=== PATIENT | male | born 1990 | race Caucasian/White ===

== ENCOUNTER 2017-03-18 12:11 | Emergency (ER) | payer SELFPAY ==
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
[2017-03-18] MEDS ORDERED: cefTRIAXone VIAL(*) 1,000 MG VIAL IM ONE (14:01)
[2017-03-18] MEDS ORDERED: methylPREDNISolone ACETATE 80* 80 MG/ML 1 ML VIAL IM ONE (14:02)
[2017-03-18] MEDS ORDERED: LoraTADine TAB(NF) 10 MG TAB (AUTOSUB to CETIRIZINE) PO ONE (14:03)
[2017-03-18] MEDS ORDERED: Lidocaine 1% MPF* 2 ML VIAL ONE (14:48)
[2017-03-18] MEDS ORDERED: Lidocaine 1% MPF* 2 ML VIAL INJ ONE (14:49)
[2017-03-18 14:55] VITALS: BP 120/70
== END 2017-03-18 15:05 | disposition home or self-care (01) ==
LOC: UCEAST 12:11
DX: M79.89 Other specified soft tissue disorders (principal)
CPT/HCPCS: 96372; 99212; A9270-GY; G0463; J0696; J1040

== ENCOUNTER 2018-01-09 20:26 | Emergency (ER) | payer OTHER ==
[2018-01-09 20:40] VITALS: BP 131/84
--- NOTE | 2018-01-09 21:09 | UC ---
UC General HPI - HPI Summary HPI Summary: c/o loose stools for the past 5 days. Denies fever, chills, mucus or blood in stools, melena or vomiting. Denies weight loss, but has some nausea when ingesting. Denies any dietary changes, not drinking much caffeine. - History of Current Complaint Chief Complaint: UCGeneralIllness Stated Complaint: DIARRHEA Time Seen by Provider: 01/09/18 21:01 Hx Obtained From: Patient Onset/Duration: Sudden Onset, Lasting Days Onset Severity: Mild Current Severity: Mild Pain Intensity: 2 Associated Signs & Symptoms: Positive: Diarrhea - Allergy/Home Medications Allergies/Adverse Reactions: Allergies Allergy/AdvReac Type Severity Reaction Status Date / Time No Known Allergies Allergy Verified 01/09/18 20:34 PMH/Surg Hx/FS Hx/Imm Hx Previously Healthy: Yes Psychological History: Depression - ADHD - Surgical History Surgical History: Yes Surgery Procedure, Year, and Place: Carpal tunnel release 6 months ago. - Family History Known Family History: Positive: None - Social History Alcohol Use: Occasionally Substance Use Type: None Smoking Status (MU): Former Smoker Type: Cigarettes Amount Used/How Often: quit in 2014 Length of Time of Smoking/Using Tobacco: 8 years Have You Smoked in the Last Year: Yes Review of Systems Gastrointestinal: Diarrhea, Nausea All Other Systems Reviewed And Are Negative: Yes Physical Exam Triage Information Reviewed: Yes Appearance: Well-Appearing, No Pain Distress, Obese Vital Signs: Initial Vital Signs Temp 98.2 F 01/09/18 20:35 Pulse 108 01/09/18 20:35 Resp 20 01/09/18 20:35 BP 131/84 01/09/18 20:35 Pulse Ox 98 01/09/18 20:35 Vital Signs Reviewed: Yes Eyes: Positive: Conjunctiva Clear ENT: Positive: Hearing grossly normal Neck: Positive: Supple, Nontender, No Lymphadenopathy Respiratory: Positive: Chest non-tender, Lungs clear, Normal breath sounds, No respiratory distress Cardiovascular: Positive: RRR, No Murmur, Pulses Normal, Brisk Capillary Refill Abdomen Description: Positive: Nontender, No Organomegaly, Soft Bowel Sounds: Positive: Present Course/Dx - Course Course Of Treatment: viral gastroenteritis, continue oral hydration, avoid alcohol, caffeine, or dairy except yogurt, f/u PCP referral. - Differential Dx - Multi-Symptom Provider Diagnoses: viral gastroenteritis Discharge - Sign-Out/Discharge Documenting (check all that apply): Discharge/Admit/Transfer - Discharge Plan Condition: Good Disposition: HOME Patient Education Materials: Gastroenteritis (ED) Forms: *Work Release Referrals: No Primary Care Phys,NOPCP [Primary Care Provider] - [facility] [place] [facility] [Outside] - Billing Disposition and Condition Condition: GOOD Disposition: Home
== END 2018-01-09 21:11 | disposition home or self-care (01) ==
LOC: UCEAST 20:26
DX: A08.4 Viral intestinal infection, unspecified (principal); F90.9 Attention-deficit hyperactivity disorder, unspecified type; F32.9 Major depressive disorder, single episode, unspecified; Z87.891 Personal history of nicotine dependence
CPT/HCPCS: 99211; G0463

== ENCOUNTER 2018-09-07 09:48 | Emergency (ER) | payer BC, OTHER ==
[2018-09-07] MEDS ORDERED: Nicotine Inhaler* 10 MG AMP INH PRN (10:21)
[2018-09-07] MEDS ORDERED: Mouth Piece, Nicotine* 1 EACH CARTRIDGE INH ONE (11:00)
--- NOTE | 2018-09-07 11:15 | ED ---
Psychiatric Complaint - HPI Summary HPI Summary: Pt is a 28 y/o male brought in by police on a 941 who presents to the ED c/o SI. As per mother, he has been under a lot of stress recently. He and his girlfriend broke up a few weeks ago, and she took his son away from him. Pts father has been mediating the situation. He has been missing work lately because of these stressors, and was subsequently fired yesterday. Pt recently found out that both his ex-girlfriend and his father have been lying to him, as his ex-girlfriend has been staying at the pts fathers house with his child. The ex-girlfriend called the pts mother last night and left a message, saying she might want to check on him. He was very depressed and upset last night because of this, and made some suicidal statements to his ex-girlfriend via text. He states he didnt mean these statements and just wanted somebody to talk to him. This morning he went to the house to confront them, but nobody answered the door. Pt has a hx of depression, and is on medications. He sees both a therapist and a psychiatrist. He reports that he is very depressed with some SI, but denies any plan. Pt also denies any HI or visual/auditory hallucinations. Pt denies any prior suicide attempt or psychiatric hospitalizations. He denies any drug use, and hasnt used alcohol in several weeks. - History Of Current Complaint Chief Complaint: EDMentalHealth Time Seen by Provider: 09/07/18 10:17 Hx Obtained From: Patient Onset/Duration: Gradual Onset, Lasting Weeks - Several, Still Present Timing: Constant Character: Depressed Aggravating Factor(s): Recent Stress Alleviating Factor(s): Nothing Associated Signs And Symptoms: Positive: Negative Related History: Positive For: Prior Psychiatric Issues Has Suicidal: Reports: Thoughts. Denies: With A Plan Has Homicidal: Denies: Thoughts - Allergies/Home Medications Allergies/Adverse Reactions: Allergies Allergy/AdvReac Type Severity Reaction Status Date / Time No Known Allergies Allergy Verified 09/07/18 10:15 Home Medications: Home Medications Bupropion XL* [Wellbutrin XL *] 3 tab PO DAILY 09/07/18 [History Confirmed 09/07] DULoxetine DR GUADALUPE* [Cymbalta CAP*] 60 mg PO DAILY 09/07/18 [History Confirmed ] [place] Carbonate 150 mg PO BID 09/07/18 [History Confirmed 09/07/18] PMH/Surg Hx/FS Hx/Imm Hx Endocrine/Hematology History: Denies: Hx Diabetes, Hx Thyroid Disease Cardiovascular History: Denies: Hx Hypertension, Hx Pacemaker/ICD, Hx Peripheral Vascular Disease Respiratory History: Denies: Hx Asthma, Hx Chronic Obstructive Pulmonary Disease (COPD) GI History: Denies: Hx Ulcer History: Denies: Hx Renal Disease Musculoskeletal History: Denies: Hx Arthritis, Hx Osteoporosis, Hx Scoliosis Sensory History: Denies: Hx Cataracts, Hx Contacts or Glasses, Hx Glaucoma, Hx Hearing Aid Opthamlomology History: Denies: Hx Cataracts, Hx Contacts or Glasses, Hx Glaucoma Neurological History: Denies: Hx Headaches, Hx Seizures, Hx Transient Ischemic Attacks (TIA) Psychiatric History: Reports: Hx Anxiety, Hx Depression Denies: Hx Panic Disorder - Surgical History Surgery Procedure, Year, and Place: Carpal tunnel release 6 months ago. Infectious Disease History: No Infectious Disease History: Denies: Hx Clostridium Difficile, Hx Hepatitis, Hx Human Immunodeficiency Virus (HIV), Hx of Known/Suspected MRSA, Hx Shingles, Hx Tuberculosis, Hx Known/ Suspected VRE, Hx Known/Suspected VRSA, History Other Infectious Disease, Traveled Outside the [place] in Last 30 Days - Family History Known Family History: Negative: Diabetes - Social History Alcohol Use: Rare Hx Substance Use: No Substance Use Type: Reports: None Hx Tobacco Use: Yes Smoking Status (MU): Former Smoker Type: Cigarettes Amount Used/How Often: quit in 2014 Length of Time of Smoking/Using Tobacco: 8 years Have You Smoked in the Last Year: Yes Review of Systems Negative: Fever Positive: Depressed, Other - SI, NEGATIVE: HI, hallucinations All Other Systems Reviewed And Are Negative: Yes Physical Exam - Summary Physical Exam Summary: GENERAL: Patient is a well-developed and nourished M who is lying comfortable in the stretcher. Patient is not in any acute respiratory distress. HEAD AND FACE: Normocephalic EYES: PERRLA, EOMI x 2. EARS: Hearing grossly intact. MOUTH: Oropharynx within normal limits. NECK: Supple, trachea is midline, no adenopathy, no JVD, no carotid bruit. CHEST: Symmetric, no tenderness at palpation LUNGS: Clear to auscultation bilaterally. No wheezing or crackles. CVS: Regular rate and rhythm, S1 and S2 present, no murmurs or gallops appreciated. ABDOMEN: Soft, non-tender. Bowel sounds are normal. No abdominal abnormal pulsations. EXTREMITIES: Full ROM in all major joints, no edema, no cyanosis or clubbing. NEURO: Alert and oriented x 3. No acute neurological deficits. Speech is normal and follows commands. SKIN: Dry and warm Triage Information Reviewed: Yes Vital Signs On Initial Exam: Initial Vitals Temp Pulse Resp BP Pulse Ox 99.5 F 110 20 149/87 98 09/07/18 10:13 09/07/18 10:13 09/07/18 10:13 09/07/18 10:13 09/07/18 10:13 Vital Signs Reviewed: Yes Diagnostics - Vital Signs Vital Signs Temp Pulse Resp BP Pulse Ox 09/07/18 10:13 99.5 F 110 20 149/87 98 - Laboratory Lab Statement: Any lab studies that have been ordered have been reviewed, and results considered in the medical decision making process. Re-Evaluation - Re-Evaluation First Eval Re-Evaluation Time: 12:00 Change: Unchanged Comment: Pt is medically cleared for a MHE. Course/Dx - Course Course Of Treatment: Pt is a 28 y/o male brought in by police on a 941 who presents to the ED c/o SI. There was no indication for a medical workup. Patient will be discharged with a final dx of depression. He has a MH appointment today at 15:15. I discussed results with patient and he reports feeling better. He is hemodynamically stable and safe for discharge. Strict return precautions given and he will otherwise follow up with his PCP. - Differential Dx/Clinical Impression Provider Diagnosis: Depression - Physician Notifications Discussed Care Of Patient With: Jose Alvarenga Time Discussed With Above Provider: 14:35 Instructed by Provider To: Other - Pt is safe to be discharged, and has a MH appointment today at 15:15. Discharge - Sign-Out/Discharge Documenting (check all that apply): Patient Departure - Discharge Patient Received Moderate/Deep Sedation with Procedure: No - Discharge Plan Condition: Stable Disposition: HOME Patient Education Materials: Depression (ED) Referrals: No Primary Care Phys,NOPCP [Primary Care Provider] - - Billing Disposition and Condition Condition: STABLE Disposition: Home - Attestation Statements Document Initiated by Scribe: Yes Documenting Scribe: Sharri Lay Provider For Whom Scribe is Documenting (Include Credential): Manju Denton MD Scribe Attestation: Sharri Krishna, scribed for Manju Denton MD on 09/08/18 at 1810. Scribe Documentation Reviewed: Yes Provider Attestation: The documentation as recorded by the Sharri bustos accurately reflects the service I personally performed and the decisions made by me, Manju Denton MD Status of Scribe Document: Viewed
[2018-09-07 14:12] VITALS: BP 126/80
== END 2018-09-07 15:57 | disposition home or self-care (01) ==
LOC: ED 09:48
DX: F32.9 Major depressive disorder, single episode, unspecified (principal); Z87.891 Personal history of nicotine dependence
CPT/HCPCS: 99284

== ENCOUNTER 2019-05-20 07:36 | Emergency (ER) | payer BC, MEDICAID, OTHER ==
[2019-05-20 07:56] VITALS: BP 122/74
--- NOTE | 2019-05-20 08:35 | UC ---
Skin Complaint HPI - HPI Summary HPI Summary: YESTERDAY AFTERNOON PT FELT A SHARP PINCH TO HIS LOWER ABDOMEN AND ABOUT 20 MINUTES LATER HAD SEVERAL INCHES OF REDNESS SURROUNDING THE AREA. TOOK A BENADRYL LAST NIGHT BUT THIS MORNING HE WOKE UP AND IT WAS EVEN LARGER. IT IS VERY ITCHY BUT NOT PAINFUL. HE HAS NO TONGUE OR LIP SWELLING. NO FEVER, NO NAUSEA, NO SHORTNESS OF BREATH/RESPIRATORY INVOLVEMENT. HAD A SIMILAR REACTION TO AN INSECT BITE A COUPLE OF YEARS AGO. - History of Current Complaint Chief Complaint: UCSkin Time Seen by Provider: 05/20/19 08:24 Stated Complaint: SKIN ISSUE FROM BUG BITE Hx Obtained From: Patient Onset/Duration: Sudden Onset, Lasting Hours, Still Present Timing: Constant Onset Severity: Moderate Current Severity: Moderate Pain Intensity: 4 Pain Scale Used: 0-10 Numeric Character: Pruritus, Redness, Raised Aggravating Factor(s): Touch Alleviating Factor(s): Nothing Associated Signs & Symptoms: Positive: Rash, Tenderness Related History: Insect Bite/Sting - Allergy/Home Medications Allergies/Adverse Reactions: Allergies Allergy/AdvReac Type Severity Reaction Status Date / Time No Known Allergies Allergy Verified 09/07/18 10:15 Home Medications: Home Medications Esomeprazole(NF) [Nexium(NF)] 20 mg PO DAILY 05/20/19 [History Confirmed ] PMH/Surg Hx/FS Hx/Imm Hx GI/ History: Gastroesophageal Reflux - Surgical History Surgical History: Yes Surgery Procedure, Year, and Place: Carpal tunnel release 2015 - Family History Known Family History: Negative: Diabetes - Social History Alcohol Use: Occasionally Substance Use Type: None Smoking Status (MU): Former Smoker Type: Cigarettes Amount Used/How Often: quit in 2014 Length of Time of Smoking/Using Tobacco: 8 years Have You Smoked in the Last Year: Yes Review of Systems All Other Systems Reviewed And Are Negative: Yes Constitutional: Positive: Negative Skin: Positive: Rash Respiratory: Positive: Negative Cardiovascular: Positive: Negative Gastrointestinal: Positive: Negative Physical Exam Triage Information Reviewed: Yes Appearance: Well-Appearing, No Pain Distress, Well-Nourished Vital Signs: Initial Vital Signs Temp 98.6 F 05/20/19 07:51 Pulse 110 05/20/19 07:51 Resp 18 05/20/19 07:51 BP 122/74 05/20/19 07:51 Pulse Ox 99 05/20/19 07:51 Vital Signs Reviewed: Yes Eyes: Positive: Conjunctiva Clear ENT: Positive: Hearing grossly normal Neck: Positive: Supple Respiratory: Positive: No respiratory distress, No accessory muscle use Cardiovascular: Positive: Pulses Normal Abdomen Description: Positive: Soft Musculoskeletal: Positive: No Edema Neurological: Positive: Alert Psychological: Positive: Age Appropriate Behavior Skin: Positive: Other - SLIGHTLY INDURATED AREA OF ERYTHEMA LWOER ABDOMEN EXTENDING FROM MIDLINE TO RIGHT MIDAXILLARY LINE Course/Dx - Course Course Of Treatment: PATIENT REPORTS THE REDNESS SURROUNDING THE INSECT BITE STARTED WITHIN MINUTES. THE AREA IS MORE ITCHY THAN PAINFUL. HE HAD A SIMILAR REACTION TO AN INSECT BITE A COUPLE OF YEARS AGO. THIS PRESENTATION IS MORE CONSISTENT WITH ACUTE ALLERGIC REACTION THAN IT IS WITH INFECTION. WILL TREAT WITH BURST OF ORAL STEROIDS, TOPICAL STEROID AND ANTIHISTAMINES. ADVISED TO KEEP COOL AND AVOID CHAFING TO THE AREA. PRESCRIPTION FOR KEFLEX ALSO SENSED PHARMACY IN CASE HE DOES NOT RESPOND TO THIS TREATMENT OVER THE NEXT COUPLE OF DAYS. - Diagnoses Provider Diagnosis: Allergic reaction Discharge ED - Sign-Out/Discharge Documenting (check all that apply): Patient Departure All imaging exams completed and their final reports reviewed: No Studies - Discharge Plan Condition: Stable Disposition: HOME Prescriptions: Cephalexin CAP* [Keflex 500 CAP*] 500 mg PO BID #20 cap predniSONE TAB* [Deltasone TAB*] 50 mg PO DAILY #5 tab Triamcinolone 0.1% CREAM(NF) [Kenalog Cream 0.1%(NF)] 1 applic TOPICAL TID PRN # 1 tube PRN Reason: Itching Patient Education Materials: General Allergic Reaction (ED) Forms: *Work Release Referrals: [facility] [Outside] - If Needed Additional Instructions: YOUR PRESENTATION IS MORE CONSISTENT WITH AN ACUTE ALLERGIC REACTION TO THE INSECT BITE THAT IT IS WITH A SKIN INFECTION. USE DAILY HYPOALLERGENIC MOISTURIZING LOTION TAKE PREDNISONE DAILY PRESCRIBED AVOID HEAT AND HOT WATER TAKE OTC ANTIHISTAMINE DAILY (CLARITIN (LORATADINE), ZYRTEC (CETIRIZINE) OR BERNARD (FEXOFENADINE) IN THE MORNING, 50MG BENADRYL AT NIGHT) DO NOT SCRATCH KEEP COOL, CLEAN AND DRY USE TOPICAL STEROID SPARINGLY 2-3 TIMES DAILY. KEEP AWAY FROM MUCOUS MEMBRANES. IF YOUR SYMPTOMS ARE NOT IMPROVING WITH THIS TREATMENT OVER THE NEXT COUPLE OF DAYS OR CERTAINLY IF YOU DEVELOP CONTINUED SPREADING REDNESS OR FEVER GO AHEAD AND FILL THE PRESCRIPTION FOR THE ANTIBIOTIC. IF YOU START THE ANTIBIOTIC TAKE IT FOR THE FULL COURSE. GO TO THE ED WITHOUT FAIL IF YOU DEVELOP ANY RESPIRATORY INVOLVEMENT, TONGUE/ LIP SWELLING, FEVER, NAUSEA/VOMITING OR ANY OTHER CONCERNING SYMPTOMS. CALL THE NUMBER BELOW FOR ASSISTANCE IN ESTABLISHING WITH A PCP An additional resource available to assist in finding the appropriate physician for your health care needs is the [facility] ([facility]). You may contact them by calling [phone]. - Billing Disposition and Condition Condition: STABLE Disposition: Home
== END 2019-05-20 08:44 | disposition home or self-care (01) ==
LOC: UCEAST 07:36
DX: T63.481A Toxic effect of venom of other arthropod, accidental (unintentional), initial encounter (principal); R21 Rash and other nonspecific skin eruption; K21.9 Gastro-esophageal reflux disease without esophagitis; Z79.899 Other long term (current) drug therapy; Z87.891 Personal history of nicotine dependence; Y92.9 Unspecified place or not applicable
CPT/HCPCS: 99212; G0463